=== PATIENT | female | born 1960 | race Caucasian/White ===

== ENCOUNTER 2017-08-31 14:15 | Emergency (ER) | payer BC ==
[~2017-08-31] VITALS: Ht 165.1 cm; Wt 81.8 kg
[2017-08-31 14:19] VITALS: TEMP 98.2
[2017-08-31] MEDS ORDERED: MOBIC15 MG PO (14:46)
[2017-08-31 15:04] VITALS: BP 173/83; PULSE 80
[2017-08-31 16:00] LABS: HIV 1/2 Antibodies Non-Reactive; HIV-1p24 Antigen Non-Reactive
== END 2017-08-31 15:13 | disposition home or self-care (01) ==
LOC: COL.ER 14:15
PROVIDERS: Nurse Practitioner Primary Care
DX: Z77.21 Contact with and (suspected) exposure to potentially hazardous body fluids (principal); Z98.890 Other specified postprocedural states

== ENCOUNTER → 2018-01-08 | Outpatient (CLI) | payer BC ==
[~2018-01-08] MED LIST: MOBIC15 MG PO
== END ==
LOC: COL.LAB 10:00
DX: Z01.812 Encounter for preprocedural laboratory examination (principal)